=== PATIENT | male | born 1955 | race Caucasian/White ===

== ENCOUNTER 2016-12-21 10:42 | Emergency (ER) | payer BC ==
[~2016-12-21] VITALS: Ht 172.7 cm; Wt 105.0 kg
[2016-12-21 13:00] LABS: HEMATOCRIT 47.2 % (38.0-50.0); MCHC 33.9 G/DL (30.0-36.0); MCV 91.5 FL (86-99); MEAN PLAT.VOLUME 8.6 uM^3 (9.0-12.4); PLATELET COUNT 281 K/uL (156-360); RBC DIS.WIDTH-CV 12.4 % (11.8-14.6); RBC DIS.WIDTH-SD 41.4 % (39-53); RED BLOOD COUNT 5.16 M/uL (4.00-5.50)
[2016-12-21 13:02] LABS: WHITE BLOOD COUNT 9.6 K/uL (4.1-10.2)
[2016-12-21 13:03] LABS: ADD MIUA? NO; BILIRUBIN NEGATIVE; BLOOD NEGATIVE; COLOR YELLOW ((YELLOW)); GLUCOSE (STRIP) NEGATIVE; KETONES NEGATIVE; LEUKOCYTES NEGATIVE; NITRITE NEGATIVE; PROTEIN (STRIP) 30; SPECIFIC GRAVITY 1.015 (1.000-1.030); UCUL ADDED? NO; UROBILINOGEN 0.2 MG/DL (0.2-1.0)
[2016-12-21 13:34] LABS: CHLORIDE 101 mEq/L (99-109); POTASSIUM 4.5 mEq/L (3.7-5.4); SODIUM 138 mEq/L (136-147)
[2016-12-21 13:37] LABS: GLUCOSE 122 mg/dL (70-99)
[2016-12-21 13:38] LABS: ANION GAP 12 MEQ/L (2-14)
[2016-12-21 13:39] LABS: TOTAL BILIRUBIN 0.9 mg/dL (0.0-1.0)
[2016-12-21 13:40] LABS: ALKALINE PHOSPHATASE 63 IU/L (3-129)
[2016-12-21 13:41] LABS: GFR ESTIMATE (CALCULATED) > 59 mL/min/
[2016-12-21 13:42] LABS: UREA NITROGEN (BUN) 15 mg/dL (9-23)
[2016-12-21 13:44] LABS: LIPASE 33 U/L (1.0-51.0)
[2016-12-21] MEDS ORDERED: MOTRIN600 MG PO (15:27)
[2016-12-21] MEDS ORDERED: FLOMAX0.4 MG PO (15:27)
[2016-12-21] MEDS ORDERED: PERCOCET 5/31 TABLET PO (15:27)
[2016-12-21] MEDS ORDERED: ZOFRAN ODT4 MG PO (15:27)
[2016-12-21 15:40] VITALS: BP 124/71
== END 2016-12-21 15:44 | disposition home or self-care (01) ==
LOC: EME 10:42
DX: N13.2 Hydronephrosis with renal and ureteral calculous obstruction (principal)
CPT/HCPCS: 74176; 80053; 81003; 83690; 85027; 99281; 99285; J1885; J7030